=== PATIENT | male | born 1970 | race Caucasian/White ===

== ENCOUNTER 2024-02-18 02:31 | Day surgery (SDC) | payer OTHER, SELFPAY ==
[2024-02-02 13:29] VITALS: BMI 50.5
--- NOTE | 2024-02-18 08:36 | WPDANESEPPF ---
Anes - Initial Pre Proc Eval Procedure: Operation Date: 02/18/24 09:30 Proposed Procedures p Screening Colonoscopy - Alexandr Abbott MD Date/Time: 02/18/24 08:36 Surgeon: Alexandr Abbott MD Pre Op Diagnosis: neoplasm screening Patient Data Age: 53 Gender: M Height: 1.78 m Weight: 160 kg Allergies Allergy/AdvReac Type Severity Reaction Status Date / Time No Known Allergies Allergy Verified 02/18/24 08:29 Home Medications Medication Instructions Recorded Confirmed Type multivitamin 1 tablet PO DAILY 04/01/20 02/02/24 History cyclobenzaprine 5 mg tablet 5 mg PO TID PRN Muscle Pain 09/22/22 02/02/24 History cholecalciferol (vitamin D3) 125 125 mcg PO DAILY 12/23/22 02/02/24 History mcg (5,000 unit) capsule ergocalciferol (vitamin D2) 1,250 1,250 mcg PO WEEKLY 3 months #13 12/23/22 02/02/24 Rx mcg (50,000 unit) capsule (Vitamin caps D2) rosuvastatin 20 mg tablet (Crestor) 20 mg PO DAILY #90 tabs 07/07/23 02/18/24 Rx flash glucose sensor (FreeStyle #6 ea 11/23/23 11/23/23 Rx Casimiro 2 Sensor kit) semaglutide 0.25 mg or 0.5 mg (2 0.25 mg (0.368 mL) subcut WEEKLY 11/23/23 02/02/24 Rx mg/3 mL) subcutaneous pen injector #3 mL (Ozempic) metformin 1,000 mg tablet 1,000 mg PO BID #180 tabs 01/11/24 02/18/24 Rx insulin lispro 200 unit/mL (3 mL) 38 unit (0.19 mL) subcut TID #18 mL 02/07/24 02/18/24 Rx subcutaneous pen semaglutide 0.25 mg or 0.5 mg (2 0.5 mg (0.736 mL) subcut WEEKLY #3 02/08/24 02/18/24 Rx mg/3 mL) subcutaneous pen injector mL (Ozempic) dextroamphetamine-amphetamine 30 30 mg PO BID #60 tabs 02/14/24 02/18/24 Rx mg tablet (Adderall) insulin glargine U-300 conc 300 80 unit (0.2667 mL) subcut QHS 90 02/14/24 02/18/24 Rx unit/mL (3 mL) subcutaneous pen days #24.003 mL (Toujeo Max U-300 SoloStar) Patient hx anesthesia problems: none Family hx anesthesia problems: none Results Review: All pre-operative results and documents have been reviewed as part of the pre-operative evaluation. [facility] Past Medical History Medical History Diabetes Erythrocytosis Narcolepsy Obesity LING (obstructive sleep apnea) Pure hypercholesterolemia, unspecified Type 2 diabetes mellitus with hyperglycemia Vitamin D deficiency Surgical History Surgical History H/O umbilical hernia repair Family History Family History Other Diabetes mellitus Family history of hearing loss Family history of obesity Social History Social History (Updated 07/07/23 @ 10:27 by Trena Rajan MA) Smoking packs per day: 3 Smoking cigarettes per day: 60.0 Years smoked: 15 Smoking pack-years: 45.00 Smoking status: Former smoker Tobacco type: cigarettes and e-cigarettes/vaping Additional smoking assessment comments: Uses Vape daily Alcohol intake: never Substance use: never Substance use type: does not use Lack of Transportation: No Lack of Food: Never True Current Housing: I Have Housing Concerned About Future Housing: No Difficulty Paying Gas/Electric Bills: No Difficulty Paying for Meds: No Currently Unemployed: No Education: Associate Degree Difficulty w/ Childcare or Family Care: No Living arrangements: with family Occupation/Education: occupation Gender identity (if verbalized by the patient): Male Spiritual care concerns: No Anes - Eval Final PreProcedure Day of Procedure 02/18/24 08:36 Patient weight: super morbidly obese Heart: regular rate and rhythm Lungs: clear to auscultation Airway: Mallampati scale class III Neurological: alert and oriented Last oral intake: >/= 8 hours ASA classification: IV Emergent: no Anesthetic plan: proceed Anesthesia type and monitoring: general GIVS and standard monitoring Results Review: All pre-operativ
[2024-02-18 08:37] VITALS: BP 157/77; PULSE 71; RESP 18; TEMP 36.2; O2SAT 96
[2024-02-18] MEDS: LACTATED RINGERS 1,000 ML 150 ML IV CONT (08:49)
--- NOTE | 2024-02-18 09:03 | PM.HPGS ---
History of Present Illness History of Present Illness Consent: Risks, benefits, and alternatives have been discussed and questions answered. Patient agrees to proceed with procedure. Chief complaint: neoplasm screening Narrative: Pedro Alford is a 53 year old male here for first screening colonoscopy Review of Systems Review of Systems: All systems reviewed & are unremarkable except as noted in HPI and below PMFSH Past Medical History Medical History (Updated 02/18/24 @ 09:04 by Alexandr Abbott MD) Colon cancer screening Diabetes Erythrocytosis Narcolepsy Obesity LING (obstructive sleep apnea) Pure hypercholesterolemia, unspecified Type 2 diabetes mellitus with hyperglycemia Vitamin D deficiency Surgical History Surgical History H/O umbilical hernia repair Family History Family History Other Diabetes mellitus Family history of hearing loss Family history of obesity Social History Social History (Updated 07/07/23 @ 10:27 by Trena Rajan MA) Smoking packs per day: 3 Smoking cigarettes per day: 60.0 Years smoked: 15 Smoking pack-years: 45.00 Smoking status: Former smoker Tobacco type: cigarettes and e-cigarettes/vaping Additional smoking assessment comments: Uses Vape daily Alcohol intake: never Substance use: never Substance use type: does not use Lack of Transportation: No Lack of Food: Never True Current Housing: I Have Housing Concerned About Future Housing: No Difficulty Paying Gas/Electric Bills: No Difficulty Paying for Meds: No Currently Unemployed: No Education: Associate Degree Difficulty w/ Childcare or Family Care: No Living arrangements: with family Occupation/Education: occupation Gender identity (if verbalized by the patient): Male Spiritual care concerns: No Meds Home Medications and Allergies Home Medications Medication Instructions Recorded Confirmed Type multivitamin 1 tablet PO DAILY 04/01/20 02/02/24 History cyclobenzaprine 5 mg tablet 5 mg PO TID PRN Muscle Pain 09/22/22 02/02/24 History cholecalciferol (vitamin D3) 125 125 mcg PO DAILY 12/23/22 02/02/24 History mcg (5,000 unit) capsule ergocalciferol (vitamin D2) 1,250 1,250 mcg PO WEEKLY 3 months #13 12/23/22 02/02/24 Rx mcg (50,000 unit) capsule (Vitamin caps D2) rosuvastatin 20 mg tablet (Crestor) 20 mg PO DAILY #90 tabs 07/07/23 02/18/24 Rx flash glucose sensor (FreeStyle #6 ea 11/23/23 11/23/23 Rx Casimiro 2 Sensor kit) semaglutide 0.25 mg or 0.5 mg (2 0.25 mg (0.368 mL) subcut WEEKLY 11/23/23 02/02/24 Rx mg/3 mL) subcutaneous pen injector #3 mL (Ozempic) metformin 1,000 mg tablet 1,000 mg PO BID #180 tabs 01/11/24 02/18/24 Rx insulin lispro 200 unit/mL (3 mL) 38 unit (0.19 mL) subcut TID #18 mL 02/07/24 02/18/24 Rx subcutaneous pen semaglutide 0.25 mg or 0.5 mg (2 0.5 mg (0.736 mL) subcut WEEKLY #3 02/08/24 02/18/24 Rx mg/3 mL) subcutaneous pen injector mL (Ozempic) dextroamphetamine-amphetamine 30 30 mg PO BID #60 tabs 02/14/24 02/18/24 Rx mg tablet (Adderall) insulin glargine U-300 conc 300 80 unit (0.2667 mL) subcut QHS 90 02/14/24 02/18/24 Rx unit/mL (3 mL) subcutaneous pen days #24.003 mL (Toujeo Max U-300 SoloStar) Allergies Allergy/AdvReac Type Severity Reaction Status Date / Time No Known Allergies Allergy Verified 02/18/24 08:29 Vital Signs Vital Signs - 24 hr 02/18/24 08:37 Temperature 97.1 F L Pulse Rate 71 Respiratory Rate 18 Blood Pressure 157/77 H Pulse Oximetry 96 Oxygen Delivery Room Air Exam Const: General: comfortable and no acute distress HENMT: Face/Nose/Sinus: Normal nares present Eyes: General: appearance normal, both eyes and all related structures Neck: Neck: no JVD Resp: Auscultation: clear to auscultation bilaterally Cardio: Rate: regular r
[2024-02-18 09:29] VITALS: BP 139/66; PULSE 72; RESP 19; O2SAT 98
[2024-02-18 09:39] VITALS: BP 136/77; PULSE 74; RESP 17; O2SAT 99
[2024-02-18 09:44] LABS: Glucose Point of Care 166 mg/dl (65-105)
[2024-02-18 09:44] LABS: Glucose Point of Care 170 mg/dl (65-105)
[2024-02-18 09:49] VITALS: BP 139/92; PULSE 66; RESP 21; O2SAT 99
== END 2024-02-18 09:59 | disposition home or self-care (01) ==
PROVIDERS: PCP Physician Assistant Medical; Visit Provider Internal Medicine Gastroenterology
PROC: 0DJD8ZZ Inspection of Lower Intestinal Tract, Via Natural or Artificial Opening Endoscopic (ICD-10-PCS; CPT 45378; principal; 2024-02-18 09:30)
DX: Z12.11 Encounter for screening for malignant neoplasm of colon (principal); D12.2 Benign neoplasm of ascending colon; K63.5 Polyp of colon; D12.4 Benign neoplasm of descending colon; E78.00 Pure hypercholesterolemia, unspecified; E11.65 Type 2 diabetes mellitus with hyperglycemia; E55.9 Vitamin D deficiency, unspecified; G47.33 Obstructive sleep apnea (adult) (pediatric); D75.1 Secondary polycythemia; E66.01 Morbid (severe) obesity due to excess calories; Z68.43 Body mass index [BMI] 50.0-59.9, adult; Z98.890 Other specified postprocedural states; Z79.85 Long-term (current) use of injectable non-insulin antidiabetic drugs; Z79.84 Long term (current) use of oral hypoglycemic drugs; Z79.4 Long term (current) use of insulin; Z87.891 Personal history of nicotine dependence
CPT/HCPCS: 45385; 82948; 88305; J2704; J7120

== ENCOUNTER 2025-03-06 08:30 | Outpatient (RCR) | payer OTHER, SELFPAY ==
--- NOTE | 2025-01-10 13:11 | OPREHPOC ---
Outpatient Therapy Plan of Care This is a Multidisciplinary Plan of Care that may contain components documented by all disciplines (PT, OT, and ST.) PT Problem 1 PT Problem #1 Knowledge Deficit PT Goal 1 Goal / Goal Update Pt will demo good understanding of diagnosis and prognosis and POC. Pt will perform HEPs indep consistently with proper positioning and technique. Target Visit 10 PT Problem 2 PT Problem #2 Pain PT Goal 1 Goal / Goal Update Pt will report a pain intensity rating of 2-3/10 during active shoulder motions and or provoking tasks (L shoulder ER, ABD, IR) Target Visit 12 PT Problem 3 PT Problem #3 Impaired Range of Motion PT Goal 1 Goal / Goal Update Pt will demo WNL of cervical and shoulder active ROM without discomfort. Target Visit 12 PT Problem 4 PT Problem #4 Impaired Strength PT Goal 1 Goal / Goal Update Pt will demo at least 4/5 or more to all tested planes. PT Goal 2 Target Visit 12 PT Problem 5 PT Problem #5 Impaired Functional Mobility PT Goal 1 Goal / Goal Update Pt will report a QUICK DASH score of 10 or less, report performing ADLs and IADLS using L dominant UE without increased pain. Target Visit 12
--- NOTE | 2025-01-10 13:11 | PTOPEVAL1 ---
Assessment and note entered by Nirali Roth, PT Evaluation Information Assessment Status Evaluation Diagnosis M25.512 ICD-10 Condition Codes (PT) Pain in left shoulder M25.512,Weakness R53.1 Onset 2 yrs ago Subjective Information Pt reports pain to the front area of L shoulder pain that started 2 yrs ago, gradually worsening to the point that he is not able to move it as much. Reports that he was shooting with bow and arrow when he slipped and fell straight forward, palm down on the L arm with elbow slightly bent, R arm swung out to protect his bow. 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 Moving in all directions forward and side increases the pain, 6/10 is greatest pain, feels 1 /10 dull ache at rest. Takes 800mg Ibuprofen morning and night to prevent severe pain levels. Denies using any ice or heat at this time. Typically Lay on back at night, pain wakes him up mandy. when pressure is placed on the L shoulder or roll over to the L side, dull ache makes it hard to get to sleep. Reported Pain Level Pain Score 3: Self Report Assessment PT Clinical Summary Pt presents to therapy with c/o L shoulder pain which originated from an injury from a fall in 2021 and progressively worsening overtime. Currently demos significant reduction in ROM, strength and functional mobility, pain is also significantly limiting his ability to perform ADLS , IADLs and recreational activities. X-Rays revealed mild osteoarthritic changes to the AC joint, negative for fractures; Pt demos positive for shoulder special tests indicating possible rotator cuff involvement and or capsulitis. His Quick Dash score is 45, which may be influenced by compensatory techniques and pattern he developed to continue performing tasks and working around the pain levels. Pt also presents with increased tightness and muscle development on the opposite side (R cervical and shoulder area). Pt will benefit from skilled PT intervention to reduce pain, improve joint mobility, shoulder strength and stability, muscle endurance and to improve QOL . Plan of Care Interventions Electrical Stimulation,Hot Pack/Cold Pack,Manual Therapy,Neuro Re-education,Patient/Caregiver Education,Therapeutic Activities,Therapeutic Exercise,Ultrasound,Other Other Interventions IASTM, Taping PT Services Indicated Yes Treatment Frequency and 2x/wk x12 visits Duration These treatments will address the objective and functional deficits as defined above. The patient will be advanced safely and appropriately in order for the patient to progress towards his/her prior level of function. Additional exercises will be introduced and as well as a comprehensive home exercise program upon discharge, if needed, ?to ensure carryover of functional gains achieved in the clinic. This treatment plan has been reviewed and agreement upon by the patient.
--- NOTE | 2025-02-07 17:16 | PTOPPROG ---
Assessment and note entered by Nirali Roth, PT Progress Information Assessment Status Progress Diagnosis M25.512 ICD-10 Condition Codes (PT) Pain in left shoulder M25.512,Weakness R53.1 Onset 2 yrs ago Subjective Information Pt reports he noticed that he is able to move L arm more, he is not as stiff as when he first started and is able to actually maintain/hold outstretched arm position for a few seconds. He noticed his muscles are getting stronger, however the pain is persisting and did not feel there is a significant change in his pain levels now than when he first started therapy. States he is interested in getting an MRI. Assessment PT Clinical Summary Pt received a total of 8 treatment sessions and demos gains in ROM and strength to L shoulder, improved Quick DASH score to 34% from 45% indicating improved functional mobility and activity tolerance. However, pt continue to c/o of pain and reduced muscle endurance that did not seem to change from start of therapy until now. Pt would like to go through further assessment by MRI and agreeable to possible specialized pain management options or possible surgery at this time in order to manage pain and regain full function of the L shoulder. He may benefit from continued skilled PT to continue working towards addressing postural dysfunction, shoulder instability and strength. Plan of Care Interventions Electrical Stimulation,Hot Pack/Cold Pack,Manual Therapy,Neuro Re-education,Patient/Caregiver Education,Therapeutic Activities,Therapeutic Exercise,Ultrasound,Other Other Interventions IASTM, Taping PT Services Indicated Yes Treatment Frequency and 2x/wk x 10 visits Duration These treatments will address the objective and functional deficits as defined above. The patient will be advanced safely and appropriately in order for the patient to progress towards his/her prior level of function. Additional exercises will be introduced and as well as a comprehensive home exercise program upon discharge, if needed, ?to ensure carryover of functional gains achieved in the clinic. This treatment plan has been reviewed and agreement upon by the patient.
--- NOTE | 2025-03-19 13:39 | PTOPDC ---
Assessment and note entered by Nirali Roth, PT Discharge Information Assessment Status Discharge Diagnosis M25.512 ICD-10 Condition Codes (PT) Pain in left shoulder M25.512,Weakness R53.1 Onset 2 yrs ago Subjective Information Reports no change in pain levels even when he is able to reach a better range, pain still persist. States compliant with HEPs. Assessment PT Clinical Summary Pt demos gains in ROM and strength to L shoulder, However, pt continue to c/o of pain and reduced muscle endurance that did not seem to change from start of therapy until now. Pt have failed conservative treatments for pain and would benefit from further assessment/imaging of the soft tissue structures around the shoulder by MRI and agreeable to possible surgery at this point in order to manage pain and regain full function of the L shoulder. Pt agreeable to DC and reports compliant with HEPs. Skilled PT discontinued. Plan of Care PT Services Indicated No
== END 2025-03-19 16:17 | disposition home or self-care (01) ==
LOC: ANHHIPT 08:30
PROVIDERS: PCP Physician Assistant Medical; Visit Provider Physician Assistant Medical
DX: M25.512 Pain in left shoulder (principal)
CPT/HCPCS: 97014; 97035; 97110; 97140; 97162; 97530; 97750; G0283

== ENCOUNTER 2025-04-24 14:16 | Outpatient (CLI) | payer OTHER, SELFPAY ==
--- NOTE | ~2025-04-24 | MR_ITS ---
MRI of the left shoulder Technique: Axial proton-density fat-sat images, coronal proton density fat-sat and T2 fat-sat images, and sagittal T1-weighted and T2 fat-sat images were acquired. Clinical History: Pain Findings: There is moderate to advanced AC joint degenerative change. Coracoclavicular, coracoacromia l, and coracohumeral ligaments appear intact. There is 2.6 x 2.2 cm area of high-grade partial thickness articular surface tearing involving the ma jority of the distal supraspinatus tendon. Focal full-thickness tearing in this region is not complet brendon excluded. Infraspinatus tendon is intact. Subscapularis tendon is intact. Tendon of long head of the biceps is intact. No definite labral tear is seen. Inferior glenohumeral ligament is intact. There is fluid distention of the subacromial/subdeltoid bur sa. There is mild chondromalacia of the glenohumeral joint. No muscle atrophy or edema. Impression: Extensive high-grade partial thickness articular surface tearing involving the entirety of the distal supraspinatus tendon. Focal full-thickness tear is not completely excluded. Consider MR arthrogram a s indicated. Fluid distention of the subacromial/subdeltoid bursa, which could reflect bursitis. Moderate to advanced AC joint degenerative change. Reviewed, dictated and finalized at [facility]. Impression: Extensive high-grade partial thickness articular surface tearing involving the entirety of the distal supraspinatus tendon. Focal full-thickness tear is not c ompletely excluded. Consider MR arthrogram as indicated. Fluid distention of the subacromial/subdeltoid bursa, which could reflect bursi tis. Moderate to advanced AC joint degenerative change.
== END 2025-04-24 14:17 | disposition home or self-care (01) ==
LOC: GOSHIMG 14:17
PROVIDERS: PCP Physician Assistant Medical; Visit Provider Physician Assistant Medical
DX: M25.512 Pain in left shoulder (principal); M19.012 Primary osteoarthritis, left shoulder; M75.102 Unspecified rotator cuff tear or rupture of left shoulder, not specified as traumatic
CPT/HCPCS: 73221

== ENCOUNTER 2025-05-14 15:29 | Outpatient (CLI) | payer OTHER, SELFPAY ==
--- NOTE | 2025-05-14 15:30 | ECG_ITS ---
Test Date: 2025-05-14 15:49:16 Measurements Intervals [place] Rate: 91 P: 65 MD: 191 QRS: 25 QRSD: 116 T: 43 QT: 348 QTc: 429 Interpretive Statements SINUS RHYTHM INTRAVENTRICULAR CONDUCTION DELAY Electronically Signed On 05-15-2025 17:10:37 CDT by Fabian Deal D.O
--- OUTSIDE RECORDS SUMMARY | 2025-05-14 15:34 | XMS_ITS | Clinical Summary ---
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 Name Role Phone Bessy Godinez Primary Care Provider [phone] Social History Tobacco Use Types Packs/Day Years Used Date Smoking Tobacco: Never Assessed Sex and Gender Information Value Date Recorded Sex Assigned at Not on file Legal Sex Male 7:55 PM CDT Gender Identity Not on file Sexual Orientation Not on file Last Filed Vital Signs Vital Sign Reading Time Taken Comments Blood Pressure 150/90 02/09/2017 2:59 PM CDT Pulse 78 02/09/2017 2:59 PM CDT Temperature - - Respiratory Rate - - Oxygen Saturation - - Inhaled Oxygen Concentration - - Weight 147.4 kg (325 lb) 02/09/2017 2:59 PM CDT Height 177.8 cm (5' 10) 02/09/2017 2:59 PM CDT Body Mass Index 46.63 02/09/2017 2:59 PM CDT Plan of Treatment Health Maintenance Due Date Last Done Comments Colorectal Cancer Screening Colonoscopy (10 Years) 1972 Annual Physical 1975 Diabetes: Retinopathy Eye Exam 1990 Hepatitis C 1990 DTaP, Tdap and Td Vaccines (1 - Tdap) 1991 Hepatitis B Vaccines (1 of 3 - 19+ 3-dose series) 1991 Pneumococcal Vaccine: 50+ Years (1 of 2 - PCV) 1991 Zoster Vaccines (1 of 2) 2022 COVID-19 Vaccine ( - 2023- season) 2024 Hemoglobin A1C 07/07/2025 01/04/2025, 12/2 10/2022, 07/01/2023, Additional history exists Kidney Health Evaluation 01/04/2026 01/04/2025 Lipid Panel 01/04/2026 01/04/2025, 03/0 11/2022, 03/12/2022, Additional history exists Meningococcal B Vaccine Aged Out No l onger eligible based on patient's age to complete this topic Meningococcal Vaccine Aged Out No jessica brielle eligible based on patient's age to complete this topic RSV Immunizations Under 20 Months Aged Out No longer eligible based on patient's age to complete this topic Procedures Procedure Name Priority Date/Time Associated Diagnosis Comments LIPID PANEL Routine 01/04/2025 9:24 AM CDT HEMOGLOBIN, GLYCOSYLATED Routine 01/04/2025 9:24 AM CDT from Last 3 Months or Most Recently Relevant to Health Maintenance Results * (ABNORMAL) HEMOGLOBIN, GLYCOSYLATED (01/04/2025 9:24 AM CDT) HGB A1C 6.7(H) <5.7 % 01/04/2025 11:19 AM CDT [facility] Comment: INCREASED RISK OF DIABETES <5.7% NON-DIABETES 5.7-6.4% INCREASED RISK FOR FUTURE DIABETES > OR = 6.5 CONSISTENT WITH DIABETES STANDARDS OF MEDICAL CARE IN DIABETES-2010 DIABETES CARE, 33(SUPP 1): S1-S61,2010 ESTIMATED AVG GLUCOSE 146 mg/dL 01/04/2025 11:19 AM CDT [facility] 01/04/2025 9:24 AM CDT us Talha Lazaro MD LABORATORY Final Result [facility] [address] [place] [address], * LIPID PANEL (01/04/2025 9:24 AM CDT) CHOLESTEROL 144 <200.0 MG/DL 01/04/2025 10:13 AM CDT [facility] TRIGLYCERIDES 109 <150 MG/DL 01/04/2025 10:13 AM CDT [facility] HDL 55 >40.0 MG/DL 01/04/2025 10:13 AM CDT [facility] LDL (CALCULATED) 67 <100 MG/DL 01/05/20 10:13 AM CDT [facility] NON HDL CHOLESTEROL 89 <130 MG/DL 01/04 10:13 AM T [facility] CHOL/HDL RATIO 2.6 0.0 - 4.5 01/04/2025 10:13 AM T [facility] VLDL CALCULATION 22 5 - 55 MG/DL 01/04/2025 10:13 AM [facility] LIPID INTERPRETATION 01/04/2025 10:13 AM T [facility] Comment: NIH CONCENSUS REPORT RECOMMENDATIONS: ADULT CHILD LOW RISK: CHOLESTEROL <200 <170 TRIGLYCERIDE <150 --- HDL >=60 --- LDL <100 <110 BORDERLINE: CHOLESTEROL 200-239 170-199 TRIGLYCERIDE 150-199 --- HDL 40-59 --- LDL 100-159 110-129 HIGH RISK: CHOLESTEROL >=240 >=200 TRIGLYCERIDE >=200 --- HDL <40 --- LDL >=160 >=130 01/04/2025 9:24 AM CDT Talha Lazaro MD LABORATORY Final Result [facility] [address] [place] [address], [place] [phone] from Last 3 Months or Most Recently Relevant to Health Maintenance Insurance [facility] Care Teams Coke Crusher Operator Relationship Specialty Start Date End Date Bessy Godinez PA [address] [place] [id number] PCP - General 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
--- OUTSIDE RECORDS SUMMARY | 2025-05-14 15:34 | XMS_ITS | Encounter Summary ---
Author Organization [facility] Address [facility] [place] [address] Care Team Providers Care Operation Manager Name Role Phone Javy Dueñas MD Primary Care Provider [phone] Bessy Godinez Primary Care Provider [phone] Encounter Details Date Type Department Care Team (Late st Contact Info) Description 07/29/2017 Abstract [facility] CONVERSION [address] [place] [address] , Generic MD Thomas Social History Tobacco Use Types Packs/Day Years Used Date Smoking Tobacco: Never Assessed Sex and Gender Information Value Date Recorded Sex Assigned at Not on file Legal Sex Male 7:55 PM CDT Gender Identity Not on file Sexual Orientation Not on file documented as of this encounter Plan of Treatment Not on file documented as of this encounter Visit Diagnoses Not on filedocumented in this encounter Care Teams Operation Manager Relationship Specialty Start Date End Date Javy Dueñas MD PCP - General 09/23/12 12/16/22 Bessy Godinez PA [address] [place] [address] PCP - General PHYSICIAN CHEMICAL PROCESSING TECHNICIAN 12/17/22 documented as of this encounter
--- OUTSIDE RECORDS SUMMARY | 2025-05-14 15:34 | XMS_ITS | Clinical Summary ---
Author Organization [facility] Address [address] [place] [address] Care Team Providers Care Tool Room Machinist Name Role Phone Unavailable Primary Care Provider Unavailabl e Source Comments [facility],non-owned Affiliates and Associated Physician Practices is amultiple site organization consisting of ambulatory clinics and hospital sitesin [place], [place], [place] and [place]. This disclosure is being madepursuant to the Care Everywhere program and may not contain all information available regarding this patient. Last updated 18.[facility] [employer] Social History Tobacco Use Types Packs/Day Years Used Date Smoking Tobacco: Never Assessed Sex and Gender Information Value Date Recorded Sex Assigned at Not on file Legal Sex Male 4:17 PM CDT Gender Identity Not on file Sexual Orientation Not on file Plan of Treatment Health Maintenance Due Date Last Done Comments COLOGUARD (AGES 45-75) - COL ON CA SCREENING 1972 COLON MONITORING 1972 COLONOSCOPY - COLON CA SCREENING 1972 CT COLONOGRAPHY - COLON CA SCREENING 1972 Colorectal Cancer Screening 1972 FIT - COLON CA SCREENING 1972 FLEX SIG - COLON CA SCREENING 1972 LIPID TESTING 1972 HIV SCREENING 1987 HEPATITIS C SCREENING 08/04/1990 DTAP/TDAP/TD VACCINES (1 - Tdap) 1991 HEPATITIS B VACCINE (1 of 3 - 19+ 3-dose series) 1991 PNEUMOCOCCAL VACCINE 50+ (1 of 1 - PCV) 2022 ZOSTER VACCINE (1 of 2) 2022 COVID-19 VACCINE (1 - 2023-2 5 season) 2024 DEPRESSION SCREENING 10/18/2024 INFLUENZA VACCINE (#1) 2025 HIB VACCINE Aged Out No longer eligi ble based on patient's age to complete this topic HPV VACCINE Aged Out No longer eligi ble based on patient's age to complete this topic MENINGOCOCCAL (Group B) VACC INE SHARED DECISION-MAKING Aged Out No longer eligibl e based on patient's age to complete this topic MENINGOCOCCAL GROUPS A/C/Y/W VACCINE Aged Out No longer eligible b ased on patient's age to complete this topic [place] [address] * Guarantor: DAVID ALFORD Account Type Relation to Patient Date of Phone Billing Address Personal/Family [address] [place] [address] SELF PAY NO INSURANCE Member Subscriber Plan / Payer (Ef fective for All Dates) Name:David Alford Member ID:Not on file Relation to Subscriber:Not on file Name:DAVID ALFORD Subscriber ID:Not on file (Home) Address: [address] [place] [address] Payer ID:Not on file Group ID:Not on file Type:Self Pay Address: [place] [address] * Guarantor: DAVID ALFORD Account Type Relation to Patient Date of Phone Billing Address Personal/Family [address] [place] [address] [employer] SELF PAY NO INSURANCE Member Subscriber Plan / Payer (Ef fective for All Dates) Name:David Alford Member ID:Not on file Relation to Subscriber:Not on file Name:DAVID ALFORD Subscriber ID:Not on file (Home) Address: [address] [place] [address] Payer ID:Not on file Group ID:Not on file Type:Self Pay Address: [place], [place] * Guarantor: DAVID ALFORD Account Type Relation to Patient Date of Phone Billing Address Personal/Family [address] [place] [address] [employer] SELF PAY NO INSURANCE Member Subscriber Plan / Payer (Ef fective for All Dates) Name:David Alford Member ID:Not on file Relation to Subscriber:Not on file Name:DAVID ALFORD Subscriber ID:Not on file (Home) Address: [address] [place] [id number] Payer ID:Not on file Group ID:Not on file Type:Self Pay Address: [place], [place]
== END 2025-05-14 15:30 | disposition home or self-care (01) ==
LOC: ANHSURGERY 15:32
PROVIDERS: PCP Physician Assistant Medical; Visit Provider Orthopaedic Surgery
DX: E11.65 Type 2 diabetes mellitus with hyperglycemia (principal); I10 Essential (primary) hypertension; Z01.818 Encounter for other preprocedural examination; I45.9 Conduction disorder, unspecified
CPT/HCPCS: 36415; 93005

== ENCOUNTER 2025-05-18 02:11 | Day surgery (SDC) | payer OTHER, SELFPAY ==
[2025-05-14 08:59] VITALS: BMI 33.2
--- NOTE | 2025-05-14 09:09 | PC.NURSE ---
Report to the Outpatient Waiting Room, entrance under the green pavilion located off [facility], at time _1000__ on date 05/18/25_. Planned Procedure Time: _1200.? Time changes happen often and if your time is changed the preop area will call you the afternoon before. - You and your visitor will be asked to self-screen and do not enter if you have any COVID symptoms. Please call surgeon if you need to reschedule. - A mask is optional within the hospital at this time. Patients may have clear liquids (water, carbonated beverages, clear teas, apple juice) until 3 hours prior to surgery with a maximum of 20 ounces. - No food from midnight until time of surgery and no smoking, or chewing tobacco (or any form of nicotine). No chewing gum, candy or mints. - Infants may have breast milk until 4 hours before surgery, infant formula 6 hours prior to surgery. - Children will be allowed to drink immediately following surgery.? If applicable, please bring a bottle or sippy cup to assist with drinking. Juice, water, soda, and popsicles are readily available.? For infants on formula, please bring formula the day of surgery.? Pacifiers are allowed. Take only the following medications with a SIP of water on the morning of surgery: _ADDERALL DO NOT STOP ANY OF YOUR OTHER PRESCRIPTION MEDICATIONS PRIOR TO SURGERY EXCEPT THE FOLLOWING Hold all vitamins and supplements for 3 days per anesthesiologist. Medications to discontinue per physician Date to take last dose Please no make-up, nail estonian, hairspray, perfume, deodorant, or body powder the day of surgery.? No jewelry (including any body piercings) or valuables the day of surgery, leave them at home.? Please take a shower or bath the night before, or the morning of, surgery with an antibacterial soap.? Wear comfortable, loose fitting clothing.? Children are encouraged to wear pajamas. - Jewelry must be removed prior to entering the operating room.? Rings and piercings that are not removed may be cut off. - The hospital will not accept responsibility for valuables.? - Please leave all valuables, including medications, at home the day of surgery. If you are going home after surgery, a licensed minibus driver must drive you home.? - NO public transportation without another adult if you receive anesthesia. - We recommend that an adult stay with you for 24 hours following discharge. - We also recommend that you do not drive, make important decision, drink alcoholic beverages, or take any drugs that were not prescribed by your health care provider for at least 24 hours after your discharge time. For Pediatric surgeries, we recommend two adults accompany the child home. Follow any additional instructions given to you from your surgeon. Telephone instructions given to ___PATIENT__and asked if any additional questions and then verbalized understanding. Patient advised to call surgeon office or pre surgery nurse liaison [phone] if any additional questions.
[2025-05-18] VITALS (8 sets, daily range): BP systolic 129–184; BP diastolic 67–99; PULSE 64–78; RESP 11–16; TEMP 36.1–36.2; O2SAT 95–100
--- OUTSIDE RECORDS SUMMARY | 2025-05-18 02:15 | XMS_ITS | Encounter Summary ---
Author Organization [facility] Address [facility] [place] [address] Care Team Providers Care Merchandiser Name Role Phone Javy Dueñas MD Primary Care Provider [phone] Bessy Godinez Primary Care Provider [phone] Encounter Details Date Type Department Care Team (Late st Contact Info) Description 07/29/[address] [facility] CONVERSION [address] [place] [address] , Generic MD Thomas Social History Tobacco [...] on filedocumented in this encounter Care Teams Merchandiser Relationship Specialty Start Date End Date Javy Dueñas MD PCP - General 09/23/12 12/16/22 Bessy Godinez PA [address] [place] [id number] PCP - General PHYSICIAN PROPERTY STAFF ACCOUNTANT 12/17/22 documented as of this encounter
--- OUTSIDE RECORDS SUMMARY | 2025-05-18 02:15 | XMS_ITS | Clinical Summary ---
Author Organization [facility] Address [address] [place] [address] Care Team Providers Care Rn Social Services Name Role Phone Unavailable Primary Care Provider Unavailabl e Source Comments [facility],non-owned Affiliates and Associated Physician Practices is amultiple site organization consisting of ambulatory clinics and hospital sitesin [place], [place], [place] and [place]. This disclosure is being madepursuant to the Care Everywhere program and may not contain all information available regarding this patient. Last updated 18.[facility] Social History Tobacco Use Types Packs/Day Years [...] to complete this topic [place] [address] * Guarantor: DAVID ALFORD Account Type Relation to Patient Date of Phone Billing Address Personal/Family [address] [place] [address] SELF PAY NO INSURANCE Member Subscriber Plan / Payer (Ef fective for All Dates) Name:David Alford Member ID:Not on file Relation to Subscriber:Not on file Name:DAVID ALFORD Subscriber ID:Not on file (Home) Address: [address] [place] [address] Payer ID:Not on file Group ID:Not on file Type:Self Pay Address: [facility] * Guarantor: DAVID ALFORD Account Type Relation to Patient Date of Phone Billing Address Personal/Family [address] [place] [address] [employer] SELF PAY NO INSURANCE Member Subscriber Plan / Payer (Ef fective for All Dates) Name:David Alford Member ID:Not on file Relation to Subscriber:Not on file Name:DAVID ALFORD Subscriber ID:Not on file (Home) Address: [address] [address] Payer ID:Not on file Group ID:Not on file Type:Self Pay Address: [place], [place] * Guarantor: DAVID ALFORD Account Type Relation to Patient Date of Phone Billing Address Personal/Family [address] [place] [address] [employer] SELF PAY NO INSURANCE Member Subscriber Plan / Payer (Ef fective for All Dates) Name:David Alford Member ID:Not on file Relation to Subscriber:Not on file Name:DAVID ALFORD Subscriber ID:Not on file (Home) Address: [address] [place] [id number] Payer ID:Not on file Group ID:Not on file Type:Self Pay Address: [place], [place]
--- OUTSIDE RECORDS SUMMARY | 2025-05-18 02:15 | XMS_ITS | Clinical Summary ---
Author Organization [facility] Address [facility] [place] [address] Care Team Providers Care Fitter Mechanic Name Role Phone Bessy Godinez Primary Care Provider [phone] Social History Tobacco Use Types Packs/Day Years [...] 6.7(H) <5.7 % 01/04/2025 11:19 AM CDT [facility] Comment: INCREASED RISK OF DIABETES <5.7% NON-DIABETES 5.7-6.4% INCREASED RISK FOR FUTURE DIABETES > OR = 6.5 CONSISTENT WITH DIABETES STANDARDS OF MEDICAL CARE IN DIABETES-2010 DIABETES CARE, 33(SUPP 1): S1-S61,2010 ESTIMATED AVG GLUCOSE 146 mg/dL 01/04/2025 11:19 AM CDT [facility] 01/04/2025 9:24 AM CDT us Talha Lazaro MD LABORATORY Final Result [facility] [address] [place] [address], * LIPID PANEL (01/04/2025 9:24 AM CDT) CHOLESTEROL 144 <200.0 MG/DL 01/04/2025 10:13 AM CDT [facility] TRIGLYCERIDES 109 <150 MG/DL 01/04/2025 10:13 AM CDT [facility] HDL 55 >40.0 MG/DL 01/04/2025 10:13 AM CDT [facility] LDL (CALCULATED) 67 <100 MG/DL 01/05/20 10:13 AM CDT [facility] NON HDL CHOLESTEROL 89 <130 MG/DL 01/04 10:13 AM T [facility] CHOL/HDL RATIO 2.6 0.0 - 4.5 01/04/2025 10:13 AM T [facility] VLDL CALCULATION 22 5 - 55 MG/DL 01/04/2025 10:13 AM [facility] LIPID INTERPRETATION 01/04/2025 10:13 AM T [facility] Comment: NIH CONCENSUS REPORT RECOMMENDATIONS: ADULT CHILD LOW RISK: CHOLESTEROL <200 <170 TRIGLYCERIDE <150 --- HDL >=60 --- LDL <100 <110 BORDERLINE: CHOLESTEROL 200-239 170-199 TRIGLYCERIDE 150-199 --- HDL 40-59 --- LDL 100-159 110-129 HIGH RISK: CHOLESTEROL >=240 >=200 TRIGLYCERIDE >=200 --- HDL <40 --- LDL >=160 >=130 01/04/2025 9:24 AM CDT Talha Lazaro MD LABORATORY Final Result [facility] [address] [place] [address], [place] [phone] from Last 3 Months or Most Recently Relevant to Health Maintenance Insurance [facility] Care Teams Fitter Mechanic Relationship Specialty Start Date End Date Bessy Godinez PA [address] [place] [address] PCP - General PHYSICIAN HORSE RACING ANALYST 12/17/22
[2025-05-18] MEDS: LACTATED RINGERS 1,000 ML 30 ML IV CONT ×2 (11:35→14:42)
[2025-05-18] MEDS: ACETAMINOPHEN 500 MG TABLET 1000 MG PO (11:39)
[2025-05-18] MEDS: KETOROLAC 15 MG/ML VIAL (*BKC) IV PUSH (11:41)
--- NOTE | 2025-05-18 11:50 | P.PNAN_ITS ---
Anes - Initial Pre Proc Eval Procedure: Operation Date: 05/18/25 12:00 Proposed Procedures p Left Shoulder Arthroscopy, Rotator Cuff Repair with Subacromial Decompression - Garrett Dudley MD Date/Time: 05/18/25 11:50 Surgeon: Garrett Dudley MD Pre Op Diagnosis: Left Shoulder partial rotator cuff tear Patient Data Age: 54 Gender: M Height: 1.78 m Weight: 151.9 kg Allergies Allergy/AdvReac Type Severity Reaction Status Date / Time chlorhexidine Allergy Severe Hives Verified 05/18/25 11:47 Home Medications ?Medication ?Instructions ?Recorded ?Confirmed ?Type cholecalciferol (vitamin D3) 125 125 mcg PO DAILY 12/23/22 05/14/25 History mcg (5,000 unit) capsule insulin glargine U-300 conc 300 80 unit (0.2667 mL) subcut QHS 90 03/27/24 05/14/25 Rx unit/mL (3 mL) subcutaneous pen days #24.003 mL (Toujeo Max U-300 SoloStar) flash glucose sensor (FreeStyle #6 ea 10/05/24 05/02/25 Rx Casimiro 2 Sensor kit) blood sugar diagnostic (FreeStyle #100 ea 10/06/24 05/02/25 Rx Test strips) metformin 1,000 mg tablet 1,000 mg PO BID #180 tabs 12/29/24 05/14/25 Rx insulin lispro 200 unit/mL (3 mL) 38 unit (0.19 mL) subcut TID #52 mL 01/04/25 05/14/25 Rx subcutaneous pen ketoconazole 2 % topical cream 1 applic topical BID #60 grams 01/04/25 05/14/25 Rx rosuvastatin 20 mg tablet (Crestor) 20 mg PO DAILY #90 tabs 02/12/25 05/14/25 Rx ergocalciferol (vitamin D2) 1,250 1,250 mcg PO WEEKLY 3 months #13 03/28/25 05/14/25 Rx mcg (50,000 unit) capsule (Vitamin caps D2) empagliflozin 10 mg tablet 10 mg PO DAILY #90 tabs 04/02/25 05/14/25 Rx (Jardiance) dextroamphetamine-amphetamine 30 30 mg PO BID #60 tabs 04/09/25 05/14/25 Rx mg tablet (Adderall) semaglutide 2 mg/dose (8 mg/3 mL) 2 mg (0.75 mL) subcut WEEKLY #3 mL 04/09/25 05/14/25 Rx subcutaneous pen injector Laboratory Tests 05/18/25 11:27 Sodium Pending Potassium Pending Chloride Pending Carbon Dioxide Pending Anion Gap Pending BUN Pending Creatinine Pending Estim Creat Clear Calc Pending Estimated GFR Pending Glucose Pending Calcium Pending Patient hx anesthesia problems: none Family hx anesthesia problems: none Results Review: All pre-operative results and documents have been reviewed as part of the pre- operative evaluation. [facility] Past Medical History Medical History Microalbuminuria Colon cancer screening Vitamin D deficiency LING (obstructive sleep apnea) Erythrocytosis Type 2 diabetes mellitus with hyperglycemia Pure hypercholesterolemia, unspecified Narcolepsy Diabetes Obesity Surgical History Surgical History H/O umbilical hernia repair Family History Family History Other Diabetes mellitus Family history of hearing loss Family history of obesity Social History Social History Smoking packs per day: 3 Smoking cigarettes per day: 60.0 Years smoked: 15 Smoking pack-years: 45.00 Smoking status: Current every day smoker Tobacco type: cigarettes and e-cigarettes/vaping Additional smoking assessment comments: QUIT 2021, VAPING SINCE 2021 Alcohol intake: former Alcohol use details: 6 PER YEAR Substance use: never Substance use type: does not use Lack of Transportation: No Lack of Food: Never True Current Housing: I Have Housing Concerned About Future Housing: No Difficulty Paying Gas/Electric Bills: No Difficulty Paying for Meds: No Currently Unemployed: No Education: Associate Degree Difficulty w/ Childcare or Family Care: No Living arrangements: with family Occupation/Education: occupation Gender identity (if verbalized by the patient): Male Spiritual care concerns: No Anes - Eval Final PreProcedure Day of Procedure 05/18/25 11:50 Patient weight: morbidly obese Heart: regular rate and rhythm Lungs: decreased breath sounds Airway: Mallampati scale class II Neurological: alert and oriented Last oral intake: >/= 8 hours ASA classification: III Emergent: no Anesthetic plan: proceed Anesthesia type and monitoring: general and standard monitoring Results Review: All pre-operative results and documents have been reviewed as part of the pre- operative evaluation. Informed Consent: The patient's anesthetic plan and its attendant risks and benefits were discussed with the patient/family/POA. Questions were solicited and answers provided to the satisfaction of the patient/family/POA.
--- NOTE | 2025-05-18 12:04 | WPDHPUPDATE1 ---
History and Physical Update Update Date/Time: 05/18/25 12:04 History and Physical has been reviewed, including an updated exam of the patient. There are NO changes in the patient's condition. Risks, benefits, and alternatives have been discussed and questions answered. Patient agrees to proceed with procedure.
[2025-05-18] MEDS: ceFAZolin 3 GM/D5W 100 ML 100 ML IVPB (12:16)
[2025-05-18 12:17] LABS: Anion Gap 7 mmol/L (4-12); Blood Urea Nitrogen 16 mg/dL (9-20); Calcium 9.2 mg/dL (8.4-10.2); Carbon Dioxide 25 mmol/L (22-30); Chloride 102 mmol/L (98-107); Estimated CRCL calculation 157 ml/min; Estimated Glomerular Filt Rate > 60; Glucose 172 mg/dL (65-110); Potassium 5.1 mmol/L (3.4-5.0); Sodium 134 mmol/L (137-145)
[2025-05-18] MEDS: BUPIVACAINE/EPINEPHRINE 0.5% 50 ML VIAL 30 ML INFILTRATE (13:13)
--- NOTE | 2025-05-18 14:53 | W.PM.PROC2 ---
Procedure Note - Detailed Date of Procedure 05/18/25 Pre-op Diagnosis Left Shoulder partial rotator cuff tear Post-op Diagnosis Other (1. Complete rotator cuff tear 2. Subacromial impingement ) Procedure Performed Left shoulder 1. Arthroscopic rotator cuff repair 2. Arthroscopic subacromial decompression Surgeon Garrett Dudley MD Anesthesia General Findings High-grade partial articular tear and low-grade bursal tear. There was a split component observed that was complete at the time of surgery. Proximally 20% intact tendon. It was elected to repair this tear with a suture anchor hand triple loaded sutures. One margin convergence and 2 mattress sutures. It was elected to place a collagen graft using the Regeneten implant to enhance biologic healing potential. 5 WAN soft tissue anchors and 2 peek bone anchors were used to secure the collagen graft. Description of Procedure Preoperative antibiotics were given. The patient was bought brought to the operating room. A general anesthetic was administered. The patient was carefully positioned in the beach chair position. The head and neck were carefully positioned. The non operative extremity was also carefully positioned. The shoulder was prepped and draped in the usual sterile fashion. Examination was performed. Standard posterior and anterior arthroscopic portals were established. Inflow achieved with the arthroscopic pump using saline and epinephrine. The glenohumeral joint was carefully inspected. The articular cartilage was normal. There was minimal degenerative fraying of the superior labrum. The biceps and anchor were intact otherwise. The subscapularis had minimal fraying without any significant tear. The supraspinatus showed a large articular tear with a significant exposure of the footprint. There was a small split completeness but much of the superior fibers were in good condition.. Attention was turned to the subacromial space. A complete bursectomy was performed. The tear configuration was carefully assessed. At this point it was elected to debride the tendon back a little bit. The remaining tissue quality was very good. A single triple loaded anchor was placed at the footprint medially. Horizontal mattress was placed at the center of the tear and 2 horizontal mattress sutures were placed more medially. This reduced the tendon very nicely. Given the thinness of the healthy tissue it was elected to reinforce this tissue and enhance healing with a biologic collagen implant. The Regeneten implant was placed with 5 WAN soft tissue anchors and 2 peek bone anchors. The arthroscopic instruments were removed. The wounds were closed with 3-0 Monocryl subcuticular suture and steri strips. There were no complications. A sling was applied and the patient brought to the recovery room. Implants Arthrex triple loaded FiberTak anchor. Regeneten collagen implant large size Dasilva and Nephew with 5 WAN soft tissue anchors and 2 peek bone anchors. Estimated Blood Loss 10 Pathology None sent Complications No immediate complications Condition Stable Disposition PACU [facility] Billing Surgery - Charge Forward: Surgery Billing
[2025-05-18] MEDS: oxyCODONE HCL (*CRX) 5 MG TAB IR PO (16:09)
== END 2025-05-18 16:40 | disposition home or self-care (01) ==
PROVIDERS: Anesthesiology; PCP Physician Assistant Medical; Visit Provider Orthopaedic Surgery
PROC: (CPT 29805; principal; 2025-05-18 12:00)
DX: M75.122 Complete rotator cuff tear or rupture of left shoulder, not specified as traumatic (principal); E55.9 Vitamin D deficiency, unspecified; G47.33 Obstructive sleep apnea (adult) (pediatric); D75.1 Secondary polycythemia; E11.65 Type 2 diabetes mellitus with hyperglycemia; E78.00 Pure hypercholesterolemia, unspecified; I45.89 Other specified conduction disorders; R80.9 Proteinuria, unspecified; G47.419 Narcolepsy without cataplexy; F17.290 Nicotine dependence, other tobacco product, uncomplicated; E66.01 Morbid (severe) obesity due to excess calories; Z68.42 Body mass index [BMI] 45.0-49.9, adult; Z79.4 Long term (current) use of insulin; Z79.84 Long term (current) use of oral hypoglycemic drugs; Z79.85 Long-term (current) use of injectable non-insulin antidiabetic drugs; Z98.890 Other specified postprocedural states
CPT/HCPCS: 29827; 29826; 36415; 80048; 82948; A4565; A9270; C1713; J0690; J1171; J1885; J2003; J2250; J2405; J2704; J3010; J7120

== ENCOUNTER 2025-08-07 08:00 | Outpatient (RCR) | payer OTHER, SELFPAY ==
--- NOTE | 2025-07-04 15:21 | PTOPPROG ---
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 His bow for real shooting is about 7 lbs and has to be able to hold it up and forward with operative arm while drawing back with nonoperative arm. Is still limited in allowed motion of arm, still takes a lot of effort reaching overhead. States was able to lift overhead for deodorant for left arm. Pt would like to add the right knee into POC today . Prior to steroid shot could walk about 100 ft then would feel a stabbing in the knee. Medial compartment moderate/severe OA. Pt reports wears boots to work and has doctor [employer] inserts and offers some arch support but not much. would like to be able to wear 50-70 lbs of gear for hunting and hike a couple miles. Would like to go for walks without pain. Assessment PT Clinical Summary Pt presents for testing of left shoulder post RTC surgery. Also wants to address right knee pain while in therapy which was evaluated today. RTC surgery is progressing well, still has some mild impingement symptoms at end-ranges. Will progress strength and stability in this round of therapy. Right knee evaluation shows decreased glute strength for knee stabilization, decreased flexibility in the surrounding structures. Pt will benefit from physical therapy in order to improve pain and function for left shoulder and right knee to meet patient functional goals. Plan of Care Interventions Electrical Stimulation,Hot Pack/Cold Pack,Manual Therapy,Neuro Re-education,Patient/Caregiver Education,Therapeutic Activities,Therapeutic Exercise,Self-Care/Home Management,Other Other Interventions Taping, bracing PT Services Indicated Yes Treatment Frequency and 2-3x weekly x 20 visits Duration These treatments will address the objective and functional deficits as defined above. The patient will be advanced safely and appropriately in order for the patient to progress towards his/her prior level of function. Additional exercises will be introduced and as well as a comprehensive home exercise program upon discharge, if needed, ?to ensure carryover of functional gains achieved in the clinic. This treatment plan has been reviewed and agreement upon by the patient.
--- NOTE | 2025-07-04 15:21 | OPREHPOC ---
Outpatient Therapy Plan of Care This is a Multidisciplinary Plan of Care that may contain components documented by all disciplines (PT, OT, and ST.) PT Problem 1 PT Problem #1 Knowledge Deficit PT Goal 1 Goal / Goal Update Pt will be independent in HEP Pt will verbalize understanding of diagnosis and prognosis Target Visit 10 Progress Met PT Problem 2 PT Problem #2 Impaired Range of Motion PT Goal 1 Goal / Goal Update Pt will demonstrate passive ROM flexion 120 degrees Target Visit 15 Progress Met PT Goal 2 Goal / Goal Update Pt will demonstrate active ROM LUE within 75% ROM of RUE Target Visit 30 PT Problem 3 PT Problem #3 Impaired Range of Motion PT Goal 1 Goal / Goal Update Pt will demonstrate external rotation of 75 degrees LUE in 90 degrees abduction Target Visit 30 Progress Met PT Goal 2 Goal / Goal Update Pt will demonstrate active ROM abduction 120 or greater Target Visit 30 PT Problem 4 PT Problem #4 Impaired Flexibility PT Goal 1 Goal / Goal Update Pt will demonstrate only mild gastroc flexibility deficit to offload right knee joint. Target Visit 30 PT Goal 2 Goal / Goal Update Pt will demonstrate only mild iliotibial band flexibility deficit to offload knee joint.
--- NOTE | 2025-08-07 09:21 | PTOPPROG ---
Assessment and note entered by Cristiane Sky, PT Evaluation Information Assessment Status Progress ICD-10 Condition Codes (PT) Pain in left shoulder M25.512,Pain in right knee M25.561,Weakness R53.1,Encounter for other orthopedic aftercare Z47.89 Onset 05/18/2025 Subjective Information Still catching at the top of the shoulder with reaching overhead. Knee is doing as good as it has in a long time. Assessment PT Clinical Summary Pt has attended 20 therapy sessions for his left rotator cuff repair and 10 of which he also was being seen for his right knee pain after steroid shot. Pt demonstrates improved ROM shoulder in all planes compared to initial evaluation, though flexion is still tight compared to right shoulder. Pt also reports feeling a pinching sensation at end-range flexion as well as a small localized pocket of swelling superior shoulder being noted with this motion. Pt is also tender in the bicipital groove area. Though pt has been strengthening in therapy sessions, his left shoulder strength continues to be limited in flexion and abduction to 3+/5 as compared to right shoulder 5/5 partially due to weakness and partially due to pain. ROM limitations and continued impingement symptoms appear to be related to poor scapulothoracic kinematics and glenohumeral kinematics. Pending MD opinion, pt may benefit from continued strengthening and possibly anti-inflammatory modalities to return to PLOF. Pt's right knee however appears to have greatly improved with greatest pain level reaching 1/10, and largest complaint is stiffness after prolonged positions, consistent with arthritis diagnosis. Pt appears to have met max benefit for his knee and this portion will be discharged from plan of care. Plan of Care Interventions Electrical Stimulation,Hot Pack/Cold Pack,Manual Therapy,Neuro Re-education,Patient/Caregiver Education,Therapeutic Activities,Therapeutic Exercise,Self-Care/Home Management,Ultrasound, Other Other Interventions Taping, bracing PT Services Indicated Yes Treatment Frequency and Pending MD opinion, 1-2x weekly x 10 visits Duration These treatments will address the objective and functional deficits as defined above. The patient will be advanced safely and appropriately in order for the patient to progress towards his/her prior level of function. Additional exercises will be introduced and as well as a comprehensive home exercise program upon discharge, if needed, ?to ensure carryover of functional gains achieved in the clinic. This treatment plan has been reviewed and agreement upon by the patient.
--- NOTE | 2025-08-14 11:54 | PTOPDC ---
Assessment and note entered by Cristiane Sky, PT Evaluation Information Assessment Status Discharge - Pt Not Present ICD-10 Condition Codes (PT) Pain in left shoulder M25.512,Pain in right knee M25.561,Weakness R53.1,Encounter for other orthopedic aftercare Z47.89 Onset 05/18/2025 Assessment PT Clinical Summary Pt has returned to work without restrictions. Note review of ortho visit states pt will continue to improve independently. Thus patient plan of care is being discharged at this time. Plan of Care PT Services Indicated No
== END 2025-08-14 15:23 | disposition home or self-care (01) ==
LOC: ANHHIPT 08:00
PROVIDERS: PCP Physician Assistant Medical; Visit Provider Orthopaedic Surgery
DX: Z48.89 Encounter for other specified surgical aftercare (principal)
CPT/HCPCS: 97014; 97110; 97140; 97161; 97530; 97750; G0283